=== PATIENT | male | born 1965 | race Caucasian/White ===

== ENCOUNTER 2017-10-24 00:57 | Emergency (ER) | payer SELFPAY ==
[~2017-10-24] VITALS: Ht 193 cm; Wt 77.1 kg
[2017-10-24 01:09] VITALS: BP 130/87
--- NOTE | 2017-10-24 01:20 | Emergency Room Report ---
History of Present Illness General Chief Complaint: Skin Rash/Abscess Source: Patient Present Illness HPI Is a 52-year-old male who denies any medical problem. He presents with chief complaint of scabies/bugs on his body. He said he first noticed it 2 days ago. His been picking at it. Denies any fever chills denies any drug use. Denies any other complaint. Allergies: Coded Allergies: No Known Allergies (Unverified , 10/24/17) Patient History Past Medical History: see triage record, old chart reviewed Past Surgical History: other Pertinent Family History: none Social History: Denies: smoking Immunizations: other Reviewed Nursing Documentation: PMH: Agreed, PSxH: Agreed Nursing Documentation-PMH Past Medical History: No History, Except For Review of Systems Eye: Denies: eye pain, blurred vision ENT: Denies: ear pain, nose congestion, throat swelling Respiratory: Denies: cough, shortness of breath Cardiovascular: Denies: chest pain, palpitations Gastrointestinal: Denies: abdominal pain, diarrhea, nausea, vomiting Musculoskeletal: Denies: back pain, joint pain Skin: Denies: rash Neurological: Denies: headache, numbness Endocrine: Denies: increased thirst, increased urine Hematologic/Lymphatic: Denies: easy bruising All Other Systems: negative except mentioned in HPI Physical Exam Vital Signs Date Time Temp Pulse Resp B/P (MAP) Pulse Ox O2 Delivery O2 Flow Rate FiO2 10/24/17 01:03 98.4 98 14 130/87 98 Room Air vitals normal Sp02 EP Interpretation: reviewed, normal General Appearance: well appearing, no apparent distress, alert Head: normocephalic, atraumatic Eyes: bilateral eye PERRL, bilateral eye EOMI ENT: hearing grossly normal, normal pharynx Neck: full range of motion, supple, no meningismus Respiratory: chest non-tender, lungs clear, normal breath sounds Cardiovascular #1: regular rate, rhythm, no murmur Gastrointestinal: normal bowel sounds, non tender, no mass, no organomegaly, no bruit, non-distended Musculoskeletal: back normal, gait/station normal, normal range of motion Neurologic: alert, oriented x3 Psychiatric: mood/affect normal Skin: warm/dry, other - He has multiple abrasions from skin picking. Medical Decision Making Diagnostic Impression: Primary Impression: Delusions of parasitosis Additional Impression: Drug abuse ER Course Patient presents with delusions of parasitosis. He was pointing out bugs on his arms. There were none. It is obvious that he's been using drugs. He is very jittery. He denies any methamphetamines or any other drug use. I asked him to give a urine sample to check for drug screen. At this point he got up and left. Last Vital Signs Date Time Temp Pulse Resp B/P (MAP) Pulse Ox O2 Delivery O2 Flow Rate FiO2 10/24/17 01:09 98.4 98 14 130/87 98 Room Air Status: unchanged Disposition: HOME, SELF-CARE Condition: Stable Scripts No Active Prescriptions or Reported Meds AUGIE GUILLAUME M.D. Oct 24, 2017 01:20
[2017-10-24 01:21] VITALS: BP 130/87
== END 2017-10-24 01:23 | disposition home or self-care (01) ==
LOC: EMR 01:20
DX: F22 Delusional disorders (principal); F19.10 Other psychoactive substance abuse, uncomplicated; T14.8XXA Other injury of unspecified body region, initial encounter; X58.XXXA Exposure to other specified factors, initial encounter; Y92.9 Unspecified place or not applicable
CPT/HCPCS: 99282